=== PATIENT | male | born 1960 | race Caucasian/White ===

== ENCOUNTER 2017-06-10 01:09 | Inpatient (IN) | payer BC ==
[~2017-06-10] VITALS: Ht 167.6 cm; Wt 100.7 kg
[2017-06-10] VITALS (15 sets, daily range): BP systolic 103–143; BP diastolic 72–96
[2017-06-10] MEDS ORDERED: OMEPRAZOLE20 MG PO (01:18)
[2017-06-10] MEDS ORDERED: ZYRTEC10 MG PO (01:19)
[2017-06-10] MEDS ORDERED: ASPIR 8181 M1 PO (01:19)
[2017-06-10] MEDS ORDERED: ATORVASTATIN CA40 MG PO (01:19)
[2017-06-10 01:38] LABS: ABSOLUTE BASOPHILS 0.1 thou/uL (0.0-0.2); ABSOLUTE EOSINOPHILS 0.2 thou/uL (0.0-0.7); ABSOLUTE MONOCYTES 0.8 thou/uL (0.0-1.2); ABSOLUTE NEUTROPHILS 4.4 thou/uL (1.6-8.1); EOSINOPHILS 2.6 %; HEMATOCRIT 44.2 % (42.0-52.0); HEMOGLOBIN 14.6 gm/dL (14.0-18.0); LYMPHOCYTES 42.5 %; MCHC 33.2 g/dL (28.0-37.0); MCV 93.4 fL (80.0-100.0); MPV 8.3 fl. (7.2-11.1); NUCLEATED RBCS 0 /100WBC; PLATELET COUNT* 312 thou/uL (150-400); POLYS 45.9 %; RBC 4.73 mil/uL (4.50-6.00); RDW-CV 13.6 % (10.5-14.5); WBC 9.5 thou/uL (4.0-11.0)
[2017-06-10 01:45] LABS: ANION GAP 9 mmol/L (7-16); BUN 21 mg/dL (7-18); CALCIUM 8.6 mg/dL (8.5-10.1); CHLORIDE 103 mmol/L (98-107); CO2 29 mmol/L (21-32); CREATININE 1.3 mg/dL (0.6-1.3); GLUCOSE 118 mg/dL (70-99); POTASSIUM 4.2 mmol/L (3.5-5.1); SODIUM 141 mmol/L (136-145)
[2017-06-10 01:53] LABS: APTT 22.2 Seconds (25.0-31.3); PROTIME 9.4 Seconds (9.20-11.50)
[2017-06-10 02:04] LABS: ALKALINE PHOSPHATASE 65 U/L (46-116); CK-MB MASS 1.8 ng/mL (<0.5-3.6); LIPASE 325 U/L (73-393); MAGNESIUM 2.2 mg/dL (1.8-2.4); NT-PRO BRAIN NAT PEPTIDE 16 pg/mL (<300); SGOT 27 U/L (15-37); SGPT 49 U/L (30-65); TOTAL BILIRUBIN 0.2 mg/dL (<0.1-1.0); TOTAL PROTEIN 7.6 g/dL (6.4-8.2); TROPONIN-I LEVEL <0.06 ng/mL (<0.06)
[2017-06-10 07:12] LABS: HEMATOCRIT 40.9 % (42.0-52.0); HEMOGLOBIN 13.5 gm/dL (14.0-18.0); MCH 30.6 pg (26.0-34.0); MCHC 33.1 g/dL (28.0-37.0); MCV 92.4 fL (80.0-100.0); RBC 4.42 mil/uL (4.50-6.00); RDW-CV 13.7 % (10.5-14.5); WBC 7.7 thou/uL (4.0-11.0)
[2017-06-10 07:37] LABS: CHOLESTEROL 138 mg/dL (<200); HDL CHOLESTEROL 47 mg/dL (>40); LDL CHOLESTEROL 69 mg/dL (<100); TC:HDL 2.9 Ratio (Not establshd); TRIGLYCERIDE 110 mg/dL (<150); TROPONIN-I LEVEL 0.56 ng/mL (<0.06); VLDL 22 mg/dL (<40)
[2017-06-10 07:38] LABS: SERUM ASSESSMENT Clear
--- NOTE | 2017-06-10 12:13 | EKG ---
[place] [address] ELECTROCARDIOGRAM REPORT Name: GLENDA GUERIN Room: [address] ADM IN [facility].#: [id number] Admission: 06/10/17 Attend Phys: Jean Smith MD, F Discharge: Date of : 64 Report #: [id number] THIS REPORT FOR: //name// [facility] ED Test Date: 2017-06-10 Test Time: 01:09:40 Pat Name: GLENDA GUERIN Department: Room: 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 : 1960 Requested By: Mundo Shah Order Number: [id number] MD: Kiel Dc Measurements Intervals Eva Rate: 89 P: 61 IN: 180 QRS: -1 QRSD: 86 T: 68 QT: 345 QTc: 420 Interpretive Statements Sinus rhythm Low voltage, extremity leads Minimal ST elevation, inferior leads No previous ECG available for comparison Electronically Signed On 06-10-2017 12:12:57 BALLAST REGULATOR OPERATOR by Kiel Dc [email or web address] <ELECTRONICALLY SIGNED> By: Kiel Dc MD, [facility] 06/10/17 1212 0109 0109 Kiel Dc MD, [facility] /EPI
--- NOTE | 2017-06-10 12:13 | EKG ---
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
--- NOTE | 2017-06-10 12:14 | EKG ---
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29 : 1960 Requested By: Jean Smith Order Number: [id number] Reading MD: Kiel Dc Measurements Intervals [place] Rate: 68 P: -4 AR: 186 QRS: -25 QRSD: 84 T: 57 QT: 373 QTc: 397 Interpretive Statements Sinus rhythm Borderline left axis deviation Borderline low voltage, extremity leads No previous ECG available for comparison Electronically Signed On 06-10-2017 12:13:53 CYLINDER WORKER by Kiel Dc [email or web address] <ELECTRONICALLY SIGNED> By: Kiel Dc MD, [facility] 06/10/17 1213 0807 0807 Kiel Dc MD, [facility] /EPI
[2017-06-11 00:10] VITALS: BP 101/73
[2017-06-11 04:08] VITALS: BP 101/76
[2017-06-11 08:45] VITALS: BP 113/91
[2017-06-11] MEDS ORDERED: BRILINTA90 MG PO (10:04)
[2017-06-11] MEDS ORDERED: NITROGLYCERIN0.4 MG SUBLING (10:05)
[2017-06-11] MEDS ORDERED: LOPRESSOR25 PO (10:05)
--- NOTE | 2017-06-11 10:21 | H ---
[address] [address] HISTORY AND PHYSICAL Name: GLENDA GUERIN Radha Room: [address] IN .[place].#: [id number] Admission: 06/10/17 Attend Phys: Jean Smith MD, F Discharge: Date of : 64 Report #: [id number] THIS REPORT FOR: //name// CC: JERRELL physician/PCP Mundo Shah DATE OF SERVICE: 06/10/2017 HISTORY OF PRESENT ILLNESS: The patient is a 56-year-old single white male who I was asked to see in the hospital today after he complained of chest pain. The patient, this past year, moved from [place] for a job. He does not have a local physician. He does have a history of hyperlipidemia and takes atorvastatin and an aspirin a day. He does not exercise on a regular basis. He did have a coronary artery calcium score done in the past that apparently was abnormally high. However, he denies any history of significant chest pain, shortness of breath, syncope. He was doing well until this evening. He went to bed and then woke up with a pressure in his chest, became short of breath, nausea and actually vomited. Paramedics were called. He was noted to have abnormal ECG. Code STEMI was activated. He was brought to the Emergency Room on an emergent basis. On arrival here, his pain has improved. He had been given aspirin and sublingual nitroglycerin. He denied any recent bleeding, fever or cough. PAST MEDICAL HISTORY: Significant for 3 knee surgeries. He has had elevated blood pressure in the past. He has a history of hyperlipidemia. MEDICATIONS: Includes atorvastatin, aspirin, Toña, omeprazole. ALLERGIES: HE HAS AN ALLERGY TO PENICILLIN. FAMILY HISTORY: Negative for heart disease. SOCIAL HISTORY: He is single, though he has a common-law . 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 No smoking. He does drink up to 12 pack of beer a day. Denies withdrawal symptoms of alcohol. REVIEW OF SYSTEMS: He has had no history of stroke, asthma, peptic ulcer disease, liver disease, kidney disease, cancer, or chronic skin condition. PHYSICAL EXAMINATION: GENERAL: Revealed a middle-aged male, who appeared in no acute distress. VITAL SIGNS: His blood pressure 120/80, pulse is 80. He is afebrile. HEENT: He was anicteric. Conjunctivae pink. Mucosa membranes moist. NECK: Veins do not appear distended. No carotid bruits. CHEST: Clear to auscultation. HEART: Regular rate and rhythm without murmur. ABDOMEN: Soft, [place] [address] HISTORY AND PHYSICAL Name: GLENDA GUERIN Room: [address] IN [facility].#: [id number] Admission: 06/10/17 Attend Phys: Jean Smith MD, F Discharge: Date of : 64 Report #: [id number] EXTREMITIES: Had no edema. Posterior tibial pulse 3+ bilaterally. SKIN: Warm and dry. NEUROLOGIC: Nonfocal. LYMPHATICS: No adenopathy. MUSCULOSKELETAL: No joint effusion. His ECG showed sinus rhythm. There was minimal ST elevation in only lead 3. Lab work: Sodium 141, creatinine 1.3, glucose 118. Liver function studies were normal. His troponin 0.06. White blood cell count 9.5, hemoglobin 14.6. IMPRESSION AND RECOMMENDATIONS: 1. Symptoms consistent with unstable angina. I do not believe the ECG shows a ST-elevation myocardial infarction. Recommend urgent cardiac catheterization. 2. History of hyperlipidemia. The patient is on a statin drug. 3. Excessive alcohol intake. We will need to monitor for withdrawal symptoms. <ELECTRONICALLY SIGNED> By: Jean Smith MD, FACC 06/11/17 1021 0306 0331Dlesley Smith MD, FACC /nt
--- NOTE | 2017-06-11 10:21 | D ---
[address] [address] DISCHARGE SUMMARY Name: TRUONGGLENDA L Room: [address] IN .R.#: [id number] Admission: 06/10/17 Attend Phys: Jean Smith MD, F Discharge: Date of : 64 Report #: [id number] THIS REPORT FOR: //name// CC: Jean Smith [facility] physician/PCP Patient's Chart DATE OF SERVICE: 06/10/2017 DISCHARGE DIAGNOSES: 1. Unstable angina. 2. Coronary artery disease. 3. Hyperlipidemia. CONSULTANTS: None. PROCEDURES: Emergent left heart catheterization with placement of 2 drug-eluting stents in the right coronary artery via the femoral approach. HISTORY OF PRESENT ILLNESS: The patient is a 56-year-old single white male who I was asked to see in the hospital today on an emergent basis because of chest pain. The patient apparently had coronary artery calcium scoring done in the past that was significantly abnormal. However, he has had no other previous cardiac workup or cardiac diagnosis. He stays active at work. He had occasional indigestion in the past. On the morning of admission, he woke up at approximately 1:00 a.m. with a pressure in his chest, became short of breath, nauseated, actually vomited. Paramedics were called. He was noted to have abnormal ECG. A code STEMI was actually activated. He was brought to the emergency room on an emergent basis. On arrival, his pain had improved. He was given aspirin, sublingual nitroglycerin and heparin. On my arrival, his pain improved. He denied recent bleeding, fever or cough. Denies exertional dyspnea, palpitations or syncope. PAST MEDICAL HISTORY: Significant for 3 knee surgeries, elevated blood pressure, hyperlipidemia. MEDICATIONS: Include atorvastatin, aspirin, Toña, omeprazole. ALLERGIES: He has an allergy to PENICILLIN. PHYSICAL EXAMINATION: VITAL SIGNS: Blood pressure was 120/80, pulse is 80. CHEST: Clear to auscultation. CARDIAC: Regular rate and rhythm. ABDOMEN: Soft, nontender. EXTREMITIES: [place] [address] DISCHARGE SUMMARY Name: GLENDA GUERIN aRdha Room: [address]#: [id number] Admission: 06/10/17 Attend Phys: Jean Smith MD, F Discharge: Date of : 64 Report #: [id number] SKIN: Warm and dry. LABORATORY DATA: His ECG on admission done by the paramedics in the field showed a sinus rhythm. There was ST segment elevation, lead 3 only of 1 mm and perhaps minimal in aVF. There are no significant reciprocal changes. His chest x-ray showed mild cardiomegaly, mild vascular congestion. His lab work, sodium 141, creatinine 1.3, glucose 118. Liver function studies were normal. Troponin on admission was 0.06. Cholesterol 138, triglyceride 110, HDL 47, LDL 69. White blood cell count 9.5, hemoglobin 14.6. HOSPITAL COURSE: I do not feel the patient was having an ST segment elevation myocardial infarction. However, because of his prolonged pain consistent with acute coronary syndrome, I recommended urgent cardiac catheterization. He was taken to the labor training manager at approximately 2:00 a.m. This was performed from the right femoral artery. Results showed an 80% stenosis of mid LAD. There is a small diagonal branch, had a 90% stenosis. The circumflex had no significant disease. The right coronary artery had a proximal 50% stenosis, 80% mid stenosis, 90% stenosis beyond the acute margin. The posterior descending branch had a 60% stenosis. He was given heparin and Aggrastat. I then placed drug-eluting stents in the mid and distal right coronary artery. He tolerated this well. An Angio-Seal was placed. He had no further chest pain, arrhythmias or heart failure. Prior to discharge, he was ambulating, had no further complaints. There was no hematoma in the right groin. The results were discussed with the patient. He is felt to have diffuse coronary artery disease. He was discharged and the plan was to have him electively readmitted on June 16 for stenting of the mid LAD 80% stenosis. He was to contact my office if he had recurrent chest pain, bleeding. He was noted to have diffuse multivessel coronary artery disease. He was not to do any significant aerobic activity prior to the additional stenting. Additional workup during his hospitalization included a peak troponin of 0.56. Repeat hemoglobin was 13.5. He was discharged on his home medications that consisted of aspirin 81 mg a day, omeprazole 40 mg a day and atorvastatin 40 mg a day. In addition, he was discharged on metoprolol tartrate 25 mg twice a day, Brilinta 90 mg twice a day and he was given nitroglycerin to take as needed for chest pain. I did recommend he obtain a primary care physician in the [place] office since he just moved to [place] from [place] 6 months ago and did not have primary care physician. He was not to do any significant physical work until he had stenting of the LAD in 5 days. 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 At time of discharge, he was ambulating, had no further complaints. He had blood pressure of 110/60, pulse is 70, he was afebrile. His prognosis is guarded due to his diffuse coronary artery disease. I did recommend he reduce his significant alcohol intake after his discharge. After [facility] [address] [place] [address] DISCHARGE SUMMARY Name: GLENDA GUERIN Room: [address] IN [facility]#: [id number] Admission: 06/10/17 Attend Phys: Jean Smith MD, F Discharge: Date of : 64 Report #: [id number] stenting of the LAD, I would encourage that the patient enroll in cardiac rehabilitation. <ELECTRONICALLY SIGNED> By: Jean Smith MD, FACC 06/11/17 1021 0910 0948Davihyun Smith MD, FACC /nt
[2017-06-11] MEDS ORDERED: TYLENOL325 MG PO (10:22)
[2017-06-11 10:26] VITALS: BP 113/91
[2017-06-11 11:18] VITALS: BP 113/91
--- NOTE | 2017-06-16 08:14 | CARD ---
[address] [address] CARDIAC CATH REPORT Name: GLENDA GUERIN Room: [address] IN [facility]#: [id number] Admission: 06/10/17 Attend Phys: Jean Smith MD, F Discharge: 06/11/17 Date of : 64 Report #: [id number] THIS REPORT FOR: //name// APPROVED REPORT Patient Details Patient Status: ED Room #: The patient is a 56 year-old male Event Personnel Jean Smith Appliance Line Assembler, Remedios Tabares Lawn Mower Sharpener, Nasir Orellana (R) Monitor, Lupe Everett Scrub Procedures Performed TRUNG Place w/wo Plasty Single RCA Indication Unstable angina Risk Factors Hypercholesterolemia Admission/Lab Medications/Medications given during procedure Platelet Aff. Inhib., Heparin Unfract. Procedure Narrative The patient was brought emergently to the Cardiac Catheterization Laboratory and was prepped and draped in a sterile manner. The right femoral was infiltrated with 1% Lidocaine subcutaneous anesthesia. A 6fr Ultimum Sheath sheath was inserted into the Right Femoral Artery. Coronary angiography was performed using coronary diagnostic catheters. The right coronary system was accessed and visualized with a Diagnostic JR4 catheter. The left coronary system was accessed and visualized with a Diagnostic JL4 catheter. The left ventricle was accessed and visualized with a Diagnostic Angled Pig catheter. Left ventricular/Aortic Valve gradient assessed via catheter pullback. Left ventriculogram was performed in DUFFY projection. Closure device was deployed with a 6 Fr Angioseal STS 6Fr. The patient tolerated the procedure well and there were no complications associated with the procedure. There was no hematoma. Intraoperative Conscious Sedation Sedation start time: 2:02 Case end Time: 2:38 Fentanyl 50 mcg Versed 2 [place] [address] CARDIAC CATH REPORT Name: GLENDA GUERIN Radha Room: [address]#: [id number] Admission: 06/10/17 Attend Phys: Jean Smith MD, F Discharge: 06/11/17 Date of : 64 Report #: [id number] Fluoro Time: 5.5 minutes Dose: DAP 34240 cGycm2 1180 mGy Contrast Type and Amount: Visipaque 190 ml Coronary Angiography The patient's coronary anatomy is co- dominant. Diagnostic Cath Left Main 0% stenosis LAD 40% proximal stenosis and 80% mid stenosis Diagonal 1 small vessel and had a 90% mid stenosis Circumflex 0% stenosis Right Coronary 50% proximal stenosis, 80% mid stenosis, and 90% distal stenosis R PDA 60% mid stenosis Left Ventriculography The left ventricle is normal in size with normal contractility. The left ventricular ejection fraction is estimated to be 60-65%. Left ventricular wall motion abnormalities are not present. There is no mitral insufficiency. Hemodynamics The aortic pressure is 95/70 mmHg with a mean of 82 mmHg. The left ventricular pressure is 125/4 mmHg with a mean of mmHg. The left ventricular end diastolic pressure is 17 mmHg. There was no gradient across the aortic valve upon pullback. Pullback from the left ventricle to the aorta revealed no gradient across the aortic valve. PCI Technique Lesion Anticoagulation was achieved with Heparin. IV aggrastat was given Patient was preloaded with Heparin IV 3000 units. Percutaneous coronary intervention was performed on the distal right coronary artery. The lesion stenosis prior to intervention was 90% with ILEANA 3 flow. A 6FR JCR 4 100CM Guide Catheter was used to engage the rca ostium. A IG: BMW 190cm Interventional Guidewire was used to cross the lesion. BALLOON DILATION A Balloon catheter Trek RX 2.5 X 8 was inserted and inflated up to 12.00atm for 11seconds. Repeat angiography revealed the following post-dilatation results: 60% stenosis[place] [address] CARDIAC CATH REPORT Name: GLENDA GUERIN Room: [address]#: [id number] Admission: 06/10/17 Attend Phys: Jean Smith MD, F Discharge: 06/11/17 Date of : 64 Report #: [id number] A drug-eluting stent Xience Alpine RX 3.0 X 12 was inserted and inflated up to 12.00atm for 11seconds. Repeat angiography revealed the following post-stent deployment results: 0% stenosis. Additional Inflation: 20.00atm for 23seconds. Final angiography reveals 0 % stenosis with ILEANA 3 flow. PCI Technique Lesion 2 Percutaneous Coronary Intervention was performed on the mid right coronary artery. Patient was preloaded with Heparin IV 3000 units. Percutaneous coronary intervention was performed on the mid right coronary artery. The lesion stenosis prior to intervention was 80% with ILEANA 3 flow. A 6FR JCR 4 100CM Guide Catheter was used to engage the rca ostium. A IG: BMW 190cm Interventional Guidewire was used to cross the lesion. Balloon Dilation A Balloon catheter Trek RX 2.5 X 8 was inserted and inflated up to 16.00atm for 10seconds. Repeat angiography revealed the following post-dilatation results: 60% stenosis. Stent Deployment A drug-eluting stent Xience Alpine RX 3.5X23 was inserted and inflated up to 8.00atm for 19seconds. Repeat angiography revealed the following post-stent deployment results: 0% stenosis. Additional Inflation: 8.00atm for 11seconds. Additional Inflation: 10.00atm for 19seconds. Final angiography reveals 0 % stenosis with ILEANA 3 flow. Conclusion 1. 80% stenosis of the mid lad 2. 80% stenosis of the mid rca and 90% stenosis of the distal rca 3. successful placement of 2 drug eluting stents in the distal and mid rca Recommendations Cardiac Rehabilitation Referral [facility] [place] [address] CARDIAC CATH REPORT Name: GLENDA GUERIN Room: [address]#: [id number] Admission: 06/10/17 Attend Phys: Jean Smith MD, F Discharge: 06/11/17 Date of : 64 Report #: [id number] Medications Administered Ticagrelor <ELECTRONICALLY SIGNED> By: Jean Smith MD, FACMarifer 06/10/17 1024 1024 1024Davihyun Smith MD, FAC /INF
== END 2017-06-11 11:29 | disposition home or self-care (01) | DRG 247 ==
LOC: M.CL 01:09 → M.ERS 01:09 → M.CL 01:55 → M.TBA-ER 03:39 → M.ICU 03:39 → M.2W 10:32
PROVIDERS: Emergency Medicine Emergency Medical Services; ADMIT Internal Medicine Cardiovascular Disease
PROC: 4A023N7 Measurement of Cardiac Sampling and Pressure, Left Heart, Percutaneous Approach (ICD-10-PCS; principal; 2017-06-10)
PROC: B211YZZ Fluoroscopy of Multiple Coronary Arteries using Other Contrast (ICD-10-PCS; principal; 2017-06-10)
PROC: 027035Z Dilation of Coronary Artery, One Artery with Two Drug-eluting Intraluminal Devices, Percutaneous Approach (ICD-10-PCS; principal; 2017-06-10)
PROC: B215YZZ Fluoroscopy of Left Heart using Other Contrast (ICD-10-PCS; principal; 2017-06-10)
DX: I25.110 Atherosclerotic heart disease of native coronary artery with unstable angina pectoris (principal); E78.5 Hyperlipidemia, unspecified; Z96.652 Presence of left artificial knee joint; Z88.0 Allergy status to penicillin; Z79.82 Long term (current) use of aspirin; Z79.899 Other long term (current) drug therapy

== ENCOUNTER → 2017-06-16 | Outpatient (CLI) | payer BC ==
[~2017-06-16] VITALS: Ht 167.6 cm; Wt 100.7 kg
[2017-06-16] VITALS (11 sets, daily range): BP systolic 109–139; BP diastolic 53–88
[~2017-06-16] MED LIST: ASPIR 8181 M1 PO; ATORVASTATIN CA40 MG PO; AZITHROMYCIN 2250 MG PO; BRILINTA90 MG PO; LOPRESSOR25 PO; NITROGLYCERIN0.4 MG SUBLING; OMEPRAZOLE20 MG PO; PREDNISONE 20 M20 MG PO; TYLENOL325 MG PO; ZYRTEC10 MG PO
[2017-06-16 12:04] LABS: HEMATOCRIT 43.2 % (42.0-52.0); HEMOGLOBIN 14.5 gm/dL (14.0-18.0); MCH 31.1 pg (26.0-34.0); MCHC 33.5 g/dL (28.0-37.0); MCV 92.8 fL (80.0-100.0); RBC 4.66 mil/uL (4.50-6.00); RDW-CV 13.6 % (10.5-14.5); WBC 10.9 thou/uL (4.0-11.0)
[2017-06-16 12:39] LABS: CALCIUM 8.6 mg/dL (8.5-10.1); CREATININE 0.9 mg/dL (0.6-1.3); POTASSIUM 5.4 mmol/L (3.5-5.1); TROPONIN-I LEVEL 0.24 ng/mL (<0.06)
--- NOTE | 2017-06-17 13:21 | CARD ---
[address] [address] CARDIAC CATH REPORT Name: GLENDA GUERIN Room: [facility]#: [id number] Admission: 06/16/17 Attend Phys: Jaen Smith MD, F Discharge: Date of : 64 Report #: [id number] THIS REPORT FOR: //name// APPROVED REPORT Patient Details Patient Status: Out-Patient Room #: The patient is a 56 year-old male Event Personnel Jean Smith Custom Tailor, Jenise Maza RN Bomb Squad Commander, Nasir Orellana ARRT (R) Monitor, PoonamRoxane harrison RTR Scrub Procedures Performed TRUNG Place w/wo Plasty Single LAD Indication Chest pain Risk Factors Hypercholesterolemia, Coronary Artery Disease Previous Procedures/Diagnoses Previous PCI Admission/Lab Medications/Medications given during procedure Heparin Unfract. Procedure Narrative The patient was brought electively to the Cardiac Catheterization Laboratory and was prepped and draped in a sterile manner. The right wrist was infiltrated with 1% Lidocaine subcutaneous anesthesia. A Slender Glidesheath sheath was inserted into the Right Radial Artery. Coronary angiography was performed using coronary diagnostic catheters. The right coronary system was accessed and visualized with a Diagnostic JR4 catheter. The left coronary system was accessed and visualized with a Guide XB 3.5 catheter. Left ventricular/Aortic Valve gradient assessed via catheter pullback. Closure device was deployed with a 6 Fr Vasc-Band Reg 24cm. The patient tolerated the procedure well and there were no complications associated with the procedure. There was no hematoma. Intraoperative Conscious Sedation Sedation start time: 9:10 Case end Time: [address] [address] CARDIAC CATH REPORT Name: GLENDA GUERIN Radha Room: [facility]#: [id number] Admission: 06/16/17 Attend Phys: Jean Smith MD, F Discharge: Date of : 64 Report #: [id number] 9:50 Fentanyl 25 mcg Versed 2 mg Fluoro Time: 6.2 minutes Dose: DAP 01390 cGycm2 1121 mGy Contrast Type and Amount: Visipaque 170 ml Coronary Angiography The patient's coronary anatomy is co- dominant. Diagnostic Cath Left Main 0% stenosis LAD 80% stenosis after the seccond diagonal branch Diagonal 1 small vessel had a mid 90% stenosis Circumflex 0% stenosis Right Coronary 50% proximal stenosis. Stents in mid and distal RCA had no restenosis. R PDA 70% distal stenosis Left Ventriculography Left Ventriculography was not performed. Hemodynamics The aortic pressure is 94/67 mmHg with a mean of 80 mmHg. The left ventricular pressure is 93/2 mmHg with a mean of mmHg. The left ventricular end diastolic pressure is 10 mmHg. There was no gradient across the aortic valve upon pullback. Pullback from the left ventricle to the aorta revealed no gradient across the aortic valve. PCI Technique Lesion Anticoagulation was achieved with Heparin. patient was on Brilinta and asa Patient was preloaded with Heparin IV 5000 units. Percutaneous coronary intervention was performed on the mid left anterior descending artery segment. The lesion stenosis prior to intervention was 80% with ILEANA 3 flow. A 6FR XB 3.5 100CM Guide Catheter was used to engage the ostium. A IG: BMW 190cm Interventional Guidewire was used to cross the lesion. BALLOON DILATION A Balloon catheter Trek RX 2.5 X 8 was inserted and inflated up to 14.00atm for 16seconds. Repeat angiography revealed the following post-dilatation results: 40% stenosis. Additional Inflation: 16.00atm for 12seconds. [place] [address] CARDIAC CATH REPORT Name: GLENDA GUERIN Room: [facility]#: [id number] Admission: 06/16/17 Attend Phys: Jean Smith MD, F Discharge: Date of : 64 Report #: [id number] A drug-eluting stent Xience Alpine RX 2.75 x 23 was inserted and inflated up to 8.00atm for 12seconds. Repeat angiography revealed the following post-stent deployment results: 0% stenosis. Additional Inflation: 8.00atm for 19seconds. Additional Inflation: 8.00atm for 14seconds. Final angiography reveals 0 % stenosis with ILEANA 3 flow. Conclusion 1. no restenosis of stents in the mid and distal rca 2. successful placement of a drug eluting stent in the mid lad Recommendations Cardiac Rehabilitation Referral [facility] <ELECTRONICALLY SIGNED> By: Jean Smith MD, FACC 06/17/171319 19 19Danixon Smith MD, FAC /INF
--- NOTE | 2017-06-17 13:28 | H ---
[address] [address] HISTORY AND PHYSICAL Name: GLENDA GUERIN [id number] Admission: 06/16/17 Attend Phys: Jean Smith MD, F Discharge: Date of : 64 Report #: [id number] THIS REPORT FOR: //name// CC: Jean Smith NO PCP DATE OF SERVICE: 06/16/2017 HISTORY OF PRESENT ILLNESS: The patient is a 56-year-old single white male who was brought to the outpatient department to undergo attempts at coronary artery stenting. The patient previously lived in [place] and moved to [facility] about 6 months ago because of a job. He does not have a local physician. He has a history of hyperlipidemia and has been on Lipitor and aspirin a day. He apparently had a coronary artery calcium score in the past that was markedly abnormal. However, he had a stress test, but never had heart catheterization. He does have a lot of indigestion related to food. However, he had no significant chest pain, shortness of breath, syncope. On 06/09, he went to bed. He then awakened about 1 in the morning with pressure in his chest, became short of breath, nauseated and vomited. Paramedics were called. He was noted to have an abnormal ECG. Code STEMI was actually activated. He was brought to [facility] by ambulance. On arrival here, his pain had improved. I took him urgently to the cardiac catheterization lab with a diagnosis of an acute coronary syndrome at 2 in the morning. This was performed from the right femoral artery. Results showed normal left ventricular function. There was an 80% stenosis of mid LAD, small diagonal branch had a 90% stenosis. Circumflex had no significant disease. The right coronary artery had a proximal 50% stenosis, a mid 80% discrete stenosis and a 90% stenosis beyond the acute margin. The posterior descending branch had a 60% stenosis. I then placed drug-eluting stent in the mid and distal right coronary, which he tolerated well. An Angio-Seal was placed. He was started on a beta-sandra and Brilinta. He had no further heart failure, arrhythmias or angina. He was discharged 2 days later and there was no hematoma in the groin. Because of the high-grade stenosis in the LAD, I recommended that he be readmitted at this time for elective stenting of the LAD. He notes that since his discharge, he had no further chest pain, lightheadedness, shortness of breath nor bleeding. PAST MEDICAL HISTORY: Otherwise significant for 3 knee surgeries. He has had elevated blood pressure in the past. He has a history of hyperlipidemia. He has a lot of dyspepsia. He had a previous diagnosis of a hiatal hernia. CURRENT MEDICATIONS: Includes atorvastatin, aspirin, Toña, omeprazole, Brilinta, metoprolol. He was not given an ZI inhibitor because of low blood pressure. ALLERGIES: He has an allergy [place] [address] HISTORY AND PHYSICAL Name: GLENDA GUERIN Room: SANDRO Baires#: [id number] Admission: 06/16/17 Attend Phys: Jean Smith MD, F Discharge: Date of : 64 Report #: [id number] FAMILY HISTORY: Negative for heart disease. 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 No smoking. He will drink up to 12 pack of beer in a day. No illicit drug use. REVIEW OF SYSTEMS: No history of stroke, asthma. He has dyspepsia. No liver disease, no kidney disease, no cancer. No chronic skin condition. PHYSICAL EXAMINATION: GENERAL: Revealed a middle-aged male. VITAL SIGNS: Blood pressure was 120/70, pulse is 70. HEENT: Mucous membranes are moist. CHEST: Clear to auscultation. HEART: Regular rate and rhythm. ABDOMEN: Soft, nontender. EXTREMITIES: Had no edema. SKIN: Warm and dry. NEUROLOGIC: Nonfocal. LYMPH: No adenopathy. MUSCULOSKELETAL: No joint effusion. IMAGING: His recent chest x-ray showed normal heart size, mild vascular congestion. LABORATORY DATA: Sodium 141, BUN 21, creatinine 1.3, glucose 118. Liver function studies were normal. His peak troponin last weekend was 0.56. Cholesterol 138, triglyceride 110, HDL 47, LDL 69. White blood cell count 7.7; hemoglobin following the procedure was 13.5, platelet count 289,000. The patient did receive Aggrastat. IMPRESSION AND RECOMMENDATIONS: 1. Coronary artery disease. Recent stenting of the right coronary artery. Recommend elective stenting of a high-grade stenosis in mid LAD. 2. Hyperlipidemia. The patient is on a statin drug. 3. Hiatal hernia. The patient has a history of indigestion. 4. Excessive alcohol intake. I did recommend alcohol in moderation only. 5. Previous tobacco abuse. Fortunately, the patient no longer smokes. <ELECTRONICALLY SIGNED> By: Jean Smith MD, [facility] 06/17/17 1328 [id number] Smith MD, FACC /nt
== END | disposition home or self-care (01) ==
LOC: M.CL 07:31
PROVIDERS: Internal Medicine Cardiovascular Disease
DX: I25.10 Atherosclerotic heart disease of native coronary artery without angina pectoris (principal); E78.5 Hyperlipidemia, unspecified; I10 Essential (primary) hypertension; I25.2 Old myocardial infarction; Z88.0 Allergy status to penicillin; Z91.041 Radiographic dye allergy status; Z79.82 Long term (current) use of aspirin; Z95.5 Presence of coronary angioplasty implant and graft; Z87.891 Personal history of nicotine dependence; Z96.652 Presence of left artificial knee joint; Z98.890 Other specified postprocedural states

== ENCOUNTER 2017-06-18 12:47 | Observation (INO) | payer BC ==
[~2017-06-18] VITALS: Ht 167.6 cm; Wt 100.2 kg
[~2017-06-18 12:47] MED LIST changes: -AZITHROMYCIN 2250 MG PO; -PREDNISONE 20 M20 MG PO
[2017-06-18 12:56] VITALS: BP 131/89
[2017-06-18 13:41] LABS: ABSOLUTE BASOPHILS 0.1 thou/uL (0.0-0.2); ABSOLUTE EOSINOPHILS 0.3 thou/uL (0.0-0.7); ABSOLUTE LYMPHOCYTES 2.5 thou/uL (0.8-5.3); ABSOLUTE MONOCYTES 0.7 thou/uL (0.0-1.2); ABSOLUTE NEUTROPHILS 5.3 thou/uL (1.6-8.1); BASOPHILS 1.2 %; EOSINOPHILS 3.3 %; HEMOGLOBIN 15.1 gm/dL (14.0-18.0); LYMPHOCYTES 28.2 %; MCH 31.3 pg (26.0-34.0); MCHC 34.2 g/dL (28.0-37.0); MCV 91.4 fL (80.0-100.0); MONOCYTES 7.5 %; MPV 7.9 fl. (7.2-11.1); NUCLEATED RBCS 0 /100WBC; PLATELET COUNT* 359 thou/uL (150-400); POLYS 59.8 %; RBC 4.81 mil/uL (4.50-6.00); RDW-CV 13.8 % (10.5-14.5); WBC 8.9 thou/uL (4.0-11.0)
[2017-06-18 13:49] LABS: ANION GAP 6 mmol/L (7-16); BUN 19 mg/dL (7-18); CALCIUM 8.8 mg/dL (8.5-10.1); CHLORIDE 105 mmol/L (98-107); CO2 27 mmol/L (21-32); CREATININE 1.2 mg/dL (0.6-1.3); GLUCOSE 95 mg/dL (70-99); POTASSIUM 4.8 mmol/L (3.5-5.1); SODIUM 138 mmol/L (136-145)
[2017-06-18 13:53] LABS: APTT 26.3 Seconds (25.0-31.3)
[2017-06-18 14:01] LABS: ALBUMIN 3.6 g/dL (3.4-5.0); ALKALINE PHOSPHATASE 66 U/L (46-116); LIPASE 196 U/L (73-393); MAGNESIUM 1.9 mg/dL (1.8-2.4); NT-PRO BRAIN NAT PEPTIDE 116 pg/mL (<300); SGOT 30 U/L (15-37); SGPT 72 U/L (30-65); TOTAL BILIRUBIN 0.3 mg/dL (<0.1-1.0); TOTAL PROTEIN 7.6 g/dL (6.4-8.2); TROPONIN-I LEVEL <0.06 ng/mL (<0.06)
[2017-06-18 16:23] VITALS: BP 121/76
[2017-06-18 16:55] VITALS: BP 124/85
[2017-06-18 20:20] VITALS: BP 125/83
[2017-06-18 23:33] VITALS: BP 125/83
[2017-06-19] VITALS: BP 127/76
[2017-06-19 04:00] VITALS: BP 123/80
[2017-06-19 08:44] VITALS: BP 136/82
[2017-06-19] MEDS ORDERED: PREDNISONE 20 M20 MG PO (11:24)
[2017-06-19] MEDS ORDERED: AZITHROMYCIN 2250 MG PO (11:24)
[2017-06-19 13:20] VITALS: BP 136/82
--- NOTE | 2017-06-21 10:42 | CON ---
[address] [address] CONSULTATION Name: GLENDA GUERIN Room: [address] Larry Baires#: [id number] Admission: 06/18/17 Attend Phys: Alaina Ramirez MD Discharge: 06/19/17 Date of : 64 Report #: [id number] THIS REPORT FOR: //name// CC: Jean ALLAN physician/PCP Alaina Ramirez MD DATE OF SERVICE: 06/19/2017 LOCATION: Room 223. HISTORY OF PRESENT ILLNESS: The patient is a 56-year-old male with complex coronary artery disease status post recent stenting of the right coronary artery and the LAD, the latter on 06/16/2017. He presented with mild shortness of breath and mild left infraclavicular chest discomfort, different from his prior ischemic pain. By virtue of the concern in the context of recent multivessel stenting, he was admitted for observation. There were no electrocardiographic or enzymatic evidences of injury. The patient is pain free at present and emphasizes that the discomfort was mild and different from his prior ischemic pain. The dyspnea he noted prior to admission has completely cleared. Risk factors for coronary artery disease include prior cigarette smoking history, hypercholesterolemia, family history of premature coronary artery disease in his father and hypertension. MEDICATIONS: Include acetaminophen, aspirin 81 mg daily, ticagrelor 90 mg b.i.d., atorvastatin 40 mg daily, Zyrtec 10 mg daily, metoprolol 25 mg b.i.d., p.r.n. sublingual nitroglycerin and omeprazole 40 mg daily. PAST MEDICAL HISTORY: Remarkable for the aforementioned risk factors as well as prior notation of a hiatal hernia and left ulnar nerve surgery. FAMILY HISTORY: Remarkable for his father having coronary artery disease and dying at age 37. SOCIAL HISTORY: The patient is single. 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 He drinks 6-8 beers per day, but no longer smokes. REVIEW OF SYSTEMS: Remarkable for the following positives: Cardiovascular: He noted mild atypical chest pain on admission. ALLERGIES: He describes contrast reaction to IV DYE and allergic [place] [address] CONSULTATION Name: GLENDA GUERIN Room: [address]#: [id number] Admission: 06/18/17 Attend Phys: Alaina Ramirez MD Discharge: 06/19/17 Date of : 64 Report #: [id number] EYES: He wears reading glasses. PHYSICAL EXAMINATION: GENERAL: Demonstrates a middle-aged male who is mildly overweight, in no acute distress. VITAL SIGNS: Blood pressure 130/70, pulse rate 74, respirations are 18 per minute. NECK: Jugular venous pressure is normal. Carotids are 1 to 2+. CHEST: Clear. CARDIAC: Reveals normal first and second heart sounds without rubs, murmurs, clicks or gallops. ABDOMEN: Soft. EXTREMITIES: Without edema with intact peripheral pulses. There is minimal ecchymosis at the recent right radial site of catheterization. LABORATORY DATA: Electrocardiogram demonstrates a sinus rhythm, possibly anterior wall scar, leftward QRS axis. IMPRESSION: 1. Atypical chest pain with mild accompanying dyspnea. 2. Recent percutaneous coronary interventions to the right coronary artery and LAD sequentially. 3. Prior tobacco use. 4. Hypercholesterolemia. 5. History of contrast dye reaction. 6. Penicillin allergy. RECOMMENDATIONS: Given the atypical characterization of the pain and the patient's stable clinical course since admission, I concur with the plan to discharge the patient to home with continued dual antiplatelet therapy, statin and beta blockade. This was discussed with the patient. Thank you for allowing us to see the patient in cardiovascular assessment. <ELECTRONICALLY SIGNED> By: King Chowdhury MD, FACC 06/21/17 1042 [id number] Chowdhury MD, FACC /nt
--- NOTE | 2017-07-04 12:11 | EKG ---
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 : 1960 Requested By: Mundo Shah Order Number: [id number] MD: King Chowdhury Measurements Intervals [place] Rate: 69 P: 8 MT: 181 QRS: -39 QRSD: 80 T: 20 QT: 371 QTc: 398 Interpretive Statements Sinus rhythm Inferior infarct, old Compared to ECG 06/10/2017 08:07:10 Myocardial infarct finding now present Electronically signed on 06-19-2017 at 15:47:45 PERSONAL FINANCE INSTRUCTOR by King Chowdhury ONAL FINANCE INSTRUCTOR [email or web address] <ELECTRONICALLY SIGNED> By: King Chowdhury MD, FACC 07/04/17 1211 1254 1254 King Chowdhury MD, [facility] /EPI
== END 2017-06-19 13:54 | disposition home or self-care (01) ==
LOC: M.ERS 12:47 → M.2W 14:42 → M.TBA-ER 14:42 → M.2W 16:39
PROVIDERS: Emergency Medicine Emergency Medical Services; ADMIT Internal Medicine
DX: R07.89 Other chest pain (principal); J40 Bronchitis, not specified as acute or chronic; I25.10 Atherosclerotic heart disease of native coronary artery without angina pectoris; I10 Essential (primary) hypertension; E78.00 Pure hypercholesterolemia, unspecified; E78.5 Hyperlipidemia, unspecified; L50.0 Allergic urticaria; T50.8X5A Adverse effect of diagnostic agents, initial encounter; Z87.891 Personal history of nicotine dependence; Z88.0 Allergy status to penicillin; Z82.49 Family history of ischemic heart disease and other diseases of the circulatory system; Z95.5 Presence of coronary angioplasty implant and graft